=== PATIENT | female | born 1990 | race Caucasian/White ===

== ENCOUNTER 2019-08-08 14:27 | Inpatient (IN) | payer OTHER ==
[~2019-08-08] VITALS: Ht 160 cm; Wt 111.3 kg
[2019-08-08 14:42] VITALS: BP 107/59
[2019-08-08] MEDS ORDERED: PRENTAB9 PO (14:52)
[2019-08-08] MEDS ORDERED: TUMS750C5 PO (14:52)
[2019-08-08 15:31] LABS: HEMATOCRIT 35.3 % (36.0-47.0); MEAN CORPUSCULAR HEMOGLOBIN 30.2 pg (27.0-33.0); MEAN CORPUSCULAR VOLUME 88.9 fl (80.0-96.0); PLATELET COUNT, AUTOMATED 277 10^3/uL (150-450); RED BLOOD COUNT 3.97 10^6/uL (4.00-5.40); WHITE BLOOD COUNT 9.2 10^3/uL (4.0-10.0)
[2019-08-08] MEDS ORDERED: LACTATED RINGER'S 1000 ML IV STA (15:33)
[2019-08-08] MEDS ORDERED: miSOPROStol 25 MCG 1/4 TAB (S0191) As Ordered ONE (15:38)
[2019-08-08] MEDS ORDERED: miSOPROStol 25 MCG 1/4 TAB (S0191) PV ONE (15:45)
[2019-08-08 16:20] VITALS: BP 112/59
--- NOTE | 2019-08-08 16:33 | HPEPDOC ---
Obstetrical History & Physical General Date of Admission Aug 08, 2019 at 14:27 History of Present Illness Karen is a 28yo at 39+3wks, EDC [id number] by LMP of [id number]. She is being admitted for an elective IOL. She reports +FM and some intermittent contractions, denies LOF/VB. She is here today with her [id number] as her support person. Her is complicated by Obesity (BMI 39.5) and excessive weight gain ( TWG 34lbs) Blood Type is O Negative, GBS Negative, COVID Negative OB History: 12/2016 uncomplicated , pelvis tested to 9lbs 3oz Chief Complaint: Induction of labor Information Provided By: Patient Age: 28 : 2 Term: 1 Pre-term: 0 Abortions: 0 Livin Care Care: Good Care Dating Final EDC: August 12, 2019 Final EDC for Daily Update: August 12, 2019 Final EDC by: LMP Antepartum Course Height (inches): 63 Pre- weight (lbs.): 209 Admission Weight (lbs.): 243 Change in Weight (lbs.): 34 Past Medical History Past Obstetrical History : Past Obstetrical History: Multigravida Type of Delivery: Spontaneous Vaginal Del. 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: Human papillomavirus(HPV) (anogenital warts), History of STD (2013 CT+) Past Medical History Surgical History: Denies/None Family History Significant Family History: No pertinent family hx Social History Marital Status: Family situation: Spouse/partner deployed Psychosocial History: No pertinent psych hx * Smoker: non-smoker Alcohol: Denies Drugs: denies Allergies Coded Allergies: No Known Allergies (Unverified , 08/08/19) Medications Scheduled No.137/Iron/Folic Acd ( Vitamin Tablet) 1 Each Tablet, 1 TAB PO DAILY Scheduled PRN Calcium Carbonate (Tums) 300 Mg Tab.chew, 1 TAB PO BIDP PRN for HEARTBURN Physical Examination Physical Examination GENERAL: Alert and oriented times three. ABDOMEN: Gravid and non-tender to touch. FETUS: Is vertex by sterile vaginal examination, confirmed by TAUS. HEART RATE: Regular rate. LUNGS: Observed nonlabored breathing. EXTREMITIES: No edema. Vital Signs/I&O O: VSS, normotensive, afebrile FHR 135, moderate variability, + accels, no decels noted CTX: occassional, pt feels mild cramping VE: 2/40/-3, posterior and medium CRB placed at 70/70, 25mcg PV Cytotec placed at 1549 Laboratory Data 24H LABS Laboratory Tests 2 08/08/19 14:41: Serology Scanned Report Hepatitis B Testing 08/08/19 15:22: Nucleated Red Blood Cells % (auto) 0.0 CBC/BMP Laboratory Tests 08/08/19 15:22 Pertinent Laboratoy Data Blood Type: O- RBC Antibody Screen: Negative HIV: Negative Hepatitis B: Negative Rapid Plasma Reagin: Nonreactive Rubella: Immune Varicella: Immune Chlamydia/Gonorrhea: Negative Group B Streptococcus: Negative Anatomy Ultrasound Ultrasound Date: May 24, 2019 (Growth US with limited anatomical survey; full anatomy US not available in chart) Placenta Location: Anterior Normal Anatomy: Yes Placenta Previa: No Assessment/Plan Assessment Karen is a 28yo at 39+3wks who is being admitted for an elective IOL. Blood Type O Negative, GBS Negative, COVID Negative, Category I FHT. Plan P: Admit to LND, consent for cervical ripening, CRB, pitocin, labor and delivery PIV start, admission labs collected 500mL LR bolus PO and IV hydration CRB and Cytotec to start IOL Continuous monitoring for 1 hour after cytotec administration, then intermittent with category I FHT Close maternal/ monitoring Anticipate Consult with OB as indicated ROMELIA VELEZ CNM Aug 08, 2019 16:33
[2019-08-08 18:00] VITALS: BP 106/57
[2019-08-08 19:25] VITALS: BP 110/68
[2019-08-08] MEDS ORDERED: miSOPROStol 50 MCG 1/2 TAB (S0191) PO SCH (20:00)
[2019-08-08 20:48] VITALS: BP 101/58
[2019-08-08 22:23] VITALS: BP 111/65
[2019-08-09] VITALS (47 sets, daily range): BP systolic 70–123; BP diastolic 33–80
--- NOTE | 2019-08-09 00:08 | IPNPDOC ---
Text Note Date of Service The patient was seen on 08/09/19. NOTE Intrapartum Note Karen is a 28yo at 39w3d undergoing elective IOL. She had barreto cervical bulb and vaginal cytotec placed just before 1600 today and she began uncomfort ably hali. Barreto bulb recently fell out and ctx are less uncomfortable now. only complicated by obesity and excessive weight gain. Proven to 9lb. Vitals wnl, afebrile Cat I FHRT with bl 120's, +accels, -decels, mod niru [place]: ctx irregular SCE: 4-5/50/-2 Will begin IV pitocin and titrate per protocol 2mg IV stadol and 12.5mg IV phenergan for pain Candidate for epidural in active labor Will continue to closely monitor Safe to proceed Dr. Yulissa Downey MD VS,Leon, I+O VS, Leon, I+O Laboratory Tests 08/08/19 15:22 Vital Signs Date Time Temp Pulse Resp B/P (MAP) Pulse Ox O2 Delivery O2 Flow Rate FiO2 08/08/19 18:38 97.6 08/08/19 18:00 112 18 106/57 (73) I&O- Last 24 Hours up to 6 AM 08/09/19 06:00 Intake Total 980 ml Balance 980 ml Yulissa Downey MD Aug 09, 2019 00:08
[2019-08-09] MEDS ORDERED: BUTORPHANOL 2 MG/ML INJ (J0595) IV PRN (00:15)
[2019-08-09] MEDS ORDERED: PROMETHAZINE INJ 25 MG/ML VIAL (J2550) IV ONE (00:15)
[2019-08-09] MEDS ORDERED: OXYTOCIN DRIP 30 UNITS in IV 1 EA IV SCH ×2 (00:15→11:30)
[2019-08-09] MEDS ORDERED: FENTANYL 2MCG/ML ROPIVACAINE 0.2% IN 0.9% NACL 100ML IVBAG As Ordered ONE (07:09)
[2019-08-09] MEDS ORDERED: REFRIGERATOR IV KEYS XX PRN (08:00)
[2019-08-09] MEDS ORDERED: EPIDURAL COMMENT XX SCH (08:00)
[2019-08-09] MEDS ORDERED: EPIDURAL/PCA KEYS XX PRN (08:00)
[2019-08-09] MEDS ORDERED: ONDANSETRON 4MG/2ML VIAL IV PRN (08:00)
[2019-08-09] MEDS ORDERED: ePHEDrine SULFATE 25 MG/5 ML(5MG/ML) SYRINGE IV PRN (08:00)
[2019-08-09] MEDS ORDERED: FENTANYL/ROPIVACAINE/NACL BAG 100 ML EPIDURAL SCH (08:00)
[2019-08-09] MEDS ORDERED: diphenhydrAMINE 50MG/ML VIAL (J1200) IV PRN (08:00)
[2019-08-09] MEDS ORDERED: NALOXONE INJ 0.4MG/1ML VIAL (J2310 PER 1MG) IV PRN (08:00)
[2019-08-09] MEDS: LACTATED RINGER'S 1000 ML IV PRN ×2 (08:13→10:49)
--- NOTE | 2019-08-09 09:21 | IPNPDOC ---
Obstetrical Progress Note Date of Service Aug 09, 2019 Subjective Intrapartum Note S: Received report from Dr. Downey during board sign out of Karen, who is a 28yo at 39w4d undergoing elective IOL. She had barreto cervical bulb and vaginal cytotec (1 dose), then pitocin started shortly after midnight. She just received her epidural and is very comfortable and no longer feeling any pain. only complicated by obesity and excessive weight gain. Proven to 9lb. O: FSS, BP normotensive now (she did become hypotensive after epidural, but received 5mg ephedrine x4); afebrile FHR: 135, moderate variability, + accels , no decelerations CTX by TOCO: q2-6 minutes Pitocin running at 8mu/min at time of this note VE: 7/90/-2, BBOW, fetus ballotable A: 28yo at 36+4wks, Elective IOL, now active labor, Category I FHT P: CEFM x2 Continue to titrate pitocin per low dose protocol Plan to AROM during next exam Close maternal/ monitoring Anticipate Consult with OB as indicated Safe to proceed Objective Vital Signs Date Time Temp Pulse Resp B/P (MAP) Pulse Ox O2 Delivery O2 Flow Rate FiO2 08/09/19 07:55 18 98 08/09/19 06:44 81 111/56 (74) 08/09/19 06:05 97.3 Sterile Vaginal Examination Postion/Presentation: Cephalic presentation Assessment and Plan Status: Reassuring Anticipate: Vaginal Delivery ROMELIA VELEZ CNM Aug 09, 2019 09:21
[2019-08-09] MEDS ORDERED: IBUPROFEN 600 MG TAB PO PRN (11:30)
[2019-08-09] MEDS ORDERED: IBUPROFEN 800 MG TAB PO PRN (11:30)
[2019-08-09] MEDS ORDERED: DIBUCAINE 1% OINTMENT 30GM TOP PRN (11:30)
[2019-08-09] MEDS ORDERED: RHOGAM 300 MCG (1500 IU) INJ (J2790) IM SCH (11:30)
[2019-08-09] MEDS ORDERED: ACETAMINOPHEN 500 MG TAB PO PRN (11:30)
[2019-08-09] MEDS ORDERED: miSOPROStol 200 MCG TAB (S0191) PR ONE (11:30)
--- NOTE | 2019-08-09 11:50 | DNPDOC ---
[facility] Delivery Note Delivery Note DATE OF DELIVERY: 09 August 2019 at 11:06am. PREDELIVERY DIAGNOSIS: 39+4 weeks gestation, Elective IOL POST DELIVERY DIAGNOSIS: Delivered. PROCEDURE: MACHINE FUR CLEANER: ALDO Velez ANESTHESIA: Epidural ESTIMATED BLOOD LOSS: 350 mL. FINDINGS: 7 pound 13 ounce male infant, Score 8/10. DELIVERY SUMMARY: Called to room after SROM of 28yo at 39+4wks now feeling constant pressure and desire to push. Pt noted to be C/C/+2. Pt was prepped for delivery and labor staff donned appropriate PPE. Pt effectively pushed to deliver viable male infant over an intact perineum. head delivered direct OA and restituted to ROT. Left anterior shoulder delivered with ease, followed by right anterior shoulder, then remainder of body delivered to maternal abdomen where he was dried and stimulated; strong/lusty cry. Once cord stopped pulsating, clamped x2 and cut by patient's [id number]. Placenta delivered spontaneously and appeared intact, 3VC; pitocin bolus started. There was a rapid gush of fluid bleeding noted after placental delivery; fundus massaged to firm; 1000mcg cytotec placed rectally for bleeding prophylaxis. Upon inspection of vagina, perineum, and cervix, a danita-clitoral abrasion noted; not bleeding and no repair required. Mother and infant bonding well; anticipate uncomplicated PP course. ROEMLIA VELEZ CNM Aug 09, 2019 11:50
--- NOTE | 2019-08-09 12:00 | IPNPDOC ---
Obstetrical Progress Note Date of Service Aug 09, 2019 Subjective Intrapartum Note S: Pitocin restarted at 0948 and pt feeling intermittent pain with contractions. In room for bedside US BENEDICT. O: VSS, BP normotensive, afebrile FHR: 135, moderate variability, + accels , late decelerations and spontaneous decelerations noted startingat 1024, RN in room performing interventions; CTX by TOCO: irregular Pitocin running at 4mu/min; turned off at 1129 VE: deferred BENEDICT: SDP 3.06 in LLQ A: 23yo at 36+2wks, IOL for ICHP, Category II FHT. Dr. Watson called to review tracing and receive orders. 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
[2019-08-09] MEDS: DOCUSATE SODIUM 100 MG CAP PO PRN (19:47)
[2019-08-09] MEDS: ACETAMINOPHEN TAB 650MG DOSE (2X325MG) PO PRN (19:48)
--- NOTE | 2019-08-10 01:57 | IPN ---
DATE: 08/09/2019 This patient requested circumcision of her male . After discussing risks and benefits of circumcision, the medical to nonmedical indications, the penile block, and aftercare, expressed understanding of penile block, aftercare, and bleeding. Signed the consent form. All questions were answered, 20-minute discussion. We await the clearance by the end maker.
[2019-08-10 05:51] VITALS: BP 123/74
[2019-08-10] MEDS ORDERED: PRENATAL VITAMINS CHEWABLE TABLET PO SCH (09:00)
[2019-08-10] MEDS: ACETAMINOPHEN TAB 650MG DOSE (2X325MG) PO PRN (15:03)
--- NOTE | 2019-08-10 16:21 | IPN ---
DATE: 08/10/2019 A 28-year-old 2, now para 2, admitted for induction of labor at 39 and 4 weeks of gestation. Has an epidural in place. Vaginal delivery. Male 7 pounds 13 ounces. scores of 8 and 10 at one and five minutes, respectfully. Risk factor of body mass index (BMI) is 39.5. We discussed phlebitis, cystitis, mastitis, metritis, cellulitis, diet, exercise, pain management, and perineal, breast, and wound care. The patient is presently breast-feeding. It is not going that well; however, we are going to work on that. Plans are to discharge after infant has been seen by pediatrics and neonatology and circumcision is performed. The patient's medications were dispensed at [facility], and she will have a 6-week checkup at [facility]. On discharge, blood pressure 123/74, respirations 18, pulse 83, temperature 97.7. Her admitting hemoglobin 12.0, hematocrit 35.3, and platelets 277. In summary, we have a term gestation, delivered a live- male . Presently doing well.
[2019-08-10 18:01] VITALS: BP 124/69
[2019-08-11 06:00] VITALS: BP 120/65
--- NOTE | 2019-08-11 07:46 | IPNPDOC ---
Progress Note Date of Service: Aug 11, 2019 Day#: 2 Progress Note PPD 2 SUBJECT: Karen is a 28yo [id number] s/p uncomplicated on 08/08 after undergoing elective IOL at 39+wk, doing well day # 2. She has been ambulating, voiding spontaneously without issue and tolerating regular diet. Breast feeding without issue. Reports lochia is like a normal period. No lightheadedness/dizziness/CP/SOB/f/c/n/v. OBJECTIVE: VITAL SIGNS: Within normal limits, afebrile. Alert and oriented times three. Abdomen: Fundus firm at U-2. Soft, NTTP. Extremities: no pain with palpation of calves ASSESSMENT: Karen is a 28yo [id number] s/p uncomplicated on 08/09 after undergoing elective IOL at 39+wk, doing well day # 2. Vitals within normal limits, afebrile, hemodynamically stable with no evidence of infection. PLAN: 1. Discharge to home today. 2. Tylenol and Motrin for pain. 3. Encourage breast feeding and ambulation. 4. 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 Routine PP visit in 6 weeks in clinic. 6. Discussed return precautions at length. Dr. Yulissa Downey MD VS, I&O, 24H, Fishbone Vital Signs/I&O Vital Signs Date Time Temp Pulse Resp B/P (MAP) Pulse Ox O2 Delivery O2 Flow Rate FiO2 08/11/19 06:00 96.6 82 20 120/65 (83) 99 Room Air Yulissa Downey MD Aug 11, 2019 07:46
[2019-08-11] MEDS ORDERED: ACET-683 PO (07:47)
--- NOTE | 2019-08-11 07:50 | DS.PDOC ---
Discharge Summary General Date of Admission Aug 08, 2019 at 14:27 Date of Discharge Aug 11, 2019 Discharge Summary PROCEDURES PERFORMED DURING STAY: spontaneous vaginal delivery ADMITTING DIAGNOSES: 1. elective IOL at term DISCHARGE DIAGNOSES: 1. elective IOL at term, delivered COMPLICATIONS/CHIEF COMPLAINT: Induction. HISTORY OF PRESENT ILLNESS/HOSPITAL COURSE: Karen is a 28yo [id number] s/p uncomplicated on 08/09 after undergoing elective IOL at 39+wk, doing well day # 2. She has had a benign course. At time of discharge, vitals within normal limits, afebrile, hemodynamically stable with no evidence of infection. DISCHARGE MEDICATIONS: Please see below. ALLERGIES: Please see below. PHYSICAL EXAMINATION ON DISCHARGE: VITAL SIGNS: Within normal limits, afebrile. Alert and oriented times three. Abdomen: Fundus firm at U-2. Soft, NTTP. Extremities: no pain with palpation of calves LABORATORY DATA: Please see below. ACTIVITY: vaginal rest, no heavy lifting 6 weeks DIET: regular DISCHARGE PLAN/INSTRUCTIONS: 1. Discharge to home today. 2. Tylenol and Motrin for pain. 3. Encourage breast feeding and ambulation. 4. 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 Routine PP visit in 6 weeks in clinic. 6. Discussed return precautions at length. DISCHARGE CONDITION: Stable TIME SPENT ON DISCHARGE: Greater than [address] Yulissa Downey MD Vital Signs/I&Os Vital Signs Date Time Temp Pulse Resp B/P (MAP) Pulse Ox O2 Delivery O2 Flow Rate FiO2 08/11/19 06:00 96.6 82 20 120/65 (83) 99 Room Air Discharge Medications Scheduled No.137/Iron/Folic Acd ( Vitamin Tablet) 1 Each Tablet, 1 TAB PO DAILY, (Reported) Scheduled PRN Acetaminophen (Acetaminophen) 500 Mg Tablet, 1,000 MG PO Q6HP PRN for PAIN LEVEL 6-10 Calcium Carbonate (Tums) 300 Mg Tab.chew, 1 TAB PO BIDP PRN for HEARTBURN, (Reported) Allergies Coded Allergies: No Known Allergies (Unverified , 08/08/19) Yulissa Downey MD Aug 11, 2019 07:50
[2019-08-11 08:00] VITALS: BP 120/65
[2019-08-11] MEDS: DOCUSATE SODIUM 100 MG CAP PO PRN (10:17)
[2019-08-11 18:16] VITALS: BP 121/65
== END 2019-08-11 18:55 | disposition home or self-care (01) | DRG 807 ==
LOC: M LDI 14:27 → M OBS 08-09 13:25
PROVIDERS: ADMIT Registered Nurse Maternal Newborn; ATTEND Registered Nurse Maternal Newborn
PROC: 3E0P7VZ Introduction of Hormone into Female Reproductive, Via Natural or Artificial Opening (ICD-10-PCS; 2019-08-08)
PROC: 10E0XZZ Delivery of Products of Conception, External Approach (ICD-10-PCS; principal; 2019-08-09)
DX: O99.214 Obesity complicating childbirth (principal); Z37.0 Single live birth; Z3A.39 39 weeks gestation of pregnancy; E66.9 Obesity, unspecified

== ENCOUNTER 2020-07-03 14:17 | Emergency (ER) | payer OTHER ==
[~2020-07-03] VITALS: Ht 160 cm; Wt 100.0 kg
[~2020-07-03 14:17] MED LIST: ACET-683 PO; PRENTAB9 PO; TUMS750C5 PO
--- NOTE | 2020-07-03 15:00 | REP ---
INDICATION: trauma COMPARISON: None. TECHNIQUE: Four views right 3rd digit. FINDINGS: There is a vertical oblique nondisplaced fracture of the distal phalanx. No other acute fracture or dislocation is seen. IMPRESSION: Nondisplaced fracture 3rd distal phalanx. <Electronically signed by Miguel Jaimes > 07/03/20 [id number]
[2020-07-03 15:28] VITALS: BP 115/64
[2020-07-03] MEDS ORDERED: ceFAZolin SOD 2 GM in IV 1 EA IV ONE (15:30)
[2020-07-03] MEDS ORDERED: BOOSTRIX/ADACEL VACCINE (DIPHTH/PERTUSS/ACELL/TETANUS) 0.5ML SYR IM ONE (15:30)
[2020-07-03] MEDS ORDERED: CEPH500C PO (16:22)
[2020-07-03] MEDS ORDERED: DERMABOND TOPICAL SKIN ADHESIVE TOP ONE (16:45)
== END 2020-07-03 17:11 | disposition home or self-care (01) ==
LOC: M ED 14:17
DX: S62.632B Displaced fracture of distal phalanx of right middle finger, initial encounter for open fracture (principal); W23.0XXA Caught, crushed, jammed, or pinched between moving objects, initial encounter; Y92.018 Other place in single-family (private) house as the place of occurrence of the external cause; Z97.5 Presence of (intrauterine) contraceptive device
CPT/HCPCS: 12001; 73140; 90471; 90715; 96365; 99284; J0690

== ENCOUNTER 2021-01-28 19:25 | Emergency (ER) | payer OTHER ==
[~2021-01-28] VITALS: Ht 160 cm; Wt 97.7 kg
[~2021-01-28 19:25] MED LIST changes: +CEPH500C PO
[2021-01-28 19:27] VITALS: BP 116/66
--- OUTSIDE RECORDS SUMMARY | 2021-01-28 19:40 | CCD ---
Author Author [facility] Organization [facility] Address Unknown Phone Unavailable Care Team Providers Care Chief Of Pediatric Urology Name Role Phone Jared Gonzalez MD Unavailable Unavailable [place], Jared Little MD Unavailable Unavailable Carlos, Jared Little MD Unavailable Unavailable [place], Jared Little MD Unavailable Unavailable Carlos, Jared Little MD Unavailable Unavailable [place], Jared Little MD Unavailable Unavailable CarlosJared MD Unavailable Unavailable CarlosJared MD Unavailable Unavailable CarlosJared MD Unavailable Unavailable [place] MD Unavailable Unavailable [place] MD Unavailable Unavailable Re-disclosure Warning The records that you are about to access may contain information from federally-assisted alcohol or drug abuse programs. If such information is present, then the following federally mandated warning applies: This information has been disclosed to you from records protected by federal confidentiality rules (42 CFR part 2). The federal rules prohibit you from making any further disclosure of this information unless further disclosure is expressly permitted by the written consent of the person to whom it pertains or as otherwise permitted by 42 CFR part 2. A general authorization for the release of medical or other information is NOT sufficient for this purpose. The Federal rules restrict any use of the information to criminally investigate or prosecute any alcohol or drug abuse patient.The records that you are about to access may contain highly sensitive health information, the redisclosure of which is protected by Article 27-F of the [facility] Public Health law. If you continue you may have access to information: Regarding HIV / AIDS; Provided by facilities licensed or operated by the [facility] Office of Mental Health; or Provided by the [facility] Office for People With Developmental Disabilities. If such information is present, then the following [facility] mandated warning applies: This information has been disclosed to you from confidential records which are protected by state law. State law prohibits you from making any further disclosure of this information without the specific written consent of the person to whom it pertains, or as otherwise permitted by law. Any unauthorized further disclosure in violation of state law may result in a fine or senior care sentence or both. A general authorization for the release of medical or other information is NOT sufficient authorization for further disc losure. Encounters Encounter Providers Location Date Indications Data Source(s ) OFFICE OUTPATIENT VISIT 15 MINUTES Attender: Sidney Gonzalez MD P hysical Therapy 07/12/2020 10:45:00 AM EDT [facility] ([facility]) OFFICE OUTPATIENT NEW 30 MINUTES Attender: Sidney Gonzalez MD Phy sical Therapy 07/05/2020 02:45:00 PM EDT [facility] ([facility]) Immunizations Vaccine Date Status Description Data Source(s) COVID-19 VACCINE Moderna 08/14/2020 12:00:00 AM EDT completed SDSIIS Vaccine Series Complete: YESThis Data wa s Submitted to [facility] Via [employer]. COVID-19 VACCINE Moderna 07/17/2020 12:00:00 AM EDT completed SDSIIS Vaccine Series Complete: NOThis Data was Submitted to [facility] Via [facility]. Medications Medication Brand Name Start Date Product Form Dose Route Admi nistrative Instructions Pharmacy Instructions Status Indications Reaction Description Data Source(s) Acetaminophen 300 MG / Codeine Phosphate 30 MG Oral Tablet [Tylenol with Codeine] Tylenol With Codeine #3 07/05/2020 12:00:00 AM EDT active [facility] ([facility]) Insurance Providers Payer name Policy type / Coverage type Policy ID Covered libertarian ID Covered libertarian's relationship to fuentes Policy Fuentes Plan Information MEDICAID [id number] SP [id number] Medicaid S [id number] S [id number] [facility] [id number] [facility]MANA [facility] [id number] 2 [id number] [facility] [id number] P [id number] Self Pay P na S na Self Pay P UNAVAILABLE S UNAVAILA BLE Problems, Conditions, and Diagnoses No Information Surgeries/Procedures Procedure Description Date Indications Data Source(s) RADEX FINGR MINIMUM 2 VIEWS 08/02/2020 12:00:00 AM EDT [facility] ([facility]) EVACUATION SUBUNGUAL HEMATOMA 07/05/2020 12:00:00 AM E DT [facility] ([facility]) Results No Information Social History No Information Vital Signs ID Date Data Source UNK Name Value Range Interpretation Code Description Data Source(s) Body temperature 97.7 [degF] 97.7 [degF] [facility] ([facility]) Body height 63 [in_i] 63 [in_i] [facility] ([facility]) 5'3" Body weight 220.25 [lb_av] 220.25 [lb_av] [facility] T ([facility] Body mass index (BMI) [Ratio] 39.0 kg/m2 39.0 k g/m2 [facility] ([facility] )
--- OUTSIDE RECORDS SUMMARY | 2021-01-28 21:35 | CCD ---
Author Author [facility] Organization [facility] Address Unknown Phone Unavailable Care Team Providers Care Chief Information Officer Name Role Phone Jared Gonzalez MD Unavailable Unavailable CarlosJared MD Unavailable Unavailable Carlos, Jared Little MD Unavailable Unavailable [place], Jared Little MD Unavailable Unavailable [place]Jared MD Unavailable Unavailable CarlosJared MD Unavailable Unavailable [place]Jared MD Unavailable Unavailable CarlosJared MD Unavailable Unavailable [place] millan MD Unavailable Unavailable CarlosJared MD Unavailable Unavailable [place] MD Unavailable Unavailable Re-disclosure Warning The records [...] is protected by Article 27-F of the [facility] Public Health law. If you continue you may have access to information: Regarding HIV / AIDS; Provided by facilities licensed or operated by the [facility] Office of Mental Health; or Provided by the [facility] Office for People With Developmental Disabilities. If such information is present, then the following [facility] mandated warning applies: This information has been [...] law may result in a fine or mcfp sentence or both. A general authorization for the release of medical or other information is NOT sufficient authorization for further disc losure. Encounters Encounter Providers Location Date Indications Data Source(s ) OFFICE OUTPATIENT VISIT 15 MINUTES Attender: Sidney Gonzalez MD P hysical Therapy 07/12/2020 10:45:00 AM EDT [facility] ([facility]) OFFICE OUTPATIENT NEW 30 MINUTES Attender: Sidney Gonzalez MD Phy sical Therapy 07/05/2020 02:45:00 PM EDT [facility] ([facility]) Immunizations Vaccine Date Status Description Data Source(s) COVID-19 VACCINE Moderna 08/14/2020 12:00:00 AM EDT completed WVSIIS Vaccine Series Complete: YESThis Data wa s Submitted to [facility] Via [employer]. COVID-19 VACCINE Moderna 07/17/2020 12:00:00 AM EDT completed WVSIIS Vaccine Series Complete: NOThis Data was Submitted to [facility] Via [employer]. Medications Medication Brand Name Start Date Product Form Dose Route Admi nistrative Instructions Pharmacy Instructions Status Indications Reaction Description Data Source(s) Acetaminophen 300 MG / Codeine Phosphate 30 MG Oral Tablet [Tylenol with Codeine] Tylenol With Codeine #3 07/05/2020 12:00:00 AM EDT active [facility] ([facility]) Insurance Providers Payer name Policy type / Coverage type Policy ID Covered republican ID Covered republican's relationship to fuentes Policy Fuentes Plan Information MEDICAID [id number] SP [id number] Medicaid S [id number] S [id number] [facility] [id number] 2 [id number] [facility] [id number] 2 [id number] [facility] [id number] P [id number] Self Pay P na S na Self Pay P UNAVAILABLE S UNAVAILA BLE Problems, Conditions, and Diagnoses No Information Surgeries/Procedures Procedure Description Date Indications Data Source(s) RADEX FINGR MINIMUM 2 VIEWS 08/02/2020 12:00:00 AM EDT [facility] ([facility]) EVACUATION SUBUNGUAL HEMATOMA 07/05/2020 12:00:00 AM E DT [facility] ([facility]) Results No Information Social History No Information Vital Signs ID Date Data Source UNK Name Value Range Interpretation Code Description Data Source(s) Body temperature 97.7 [degF] 97.7 [degF] [facility] ([facility]) Body height 63 [in_i] 63 [in_i] [facility] ([facility]) 5'3" Body weight 220.25 [lb_av] 220.25 [lb_av] [facility] T ([facility] ) Body mass index (BMI) [Ratio] 39.0 kg/m2 39.0 k g/m2 [facility] ([facility]
[2021-01-28 22:10] LABS: RSV AMPLIFICATION NEGATIVE (NEGATIVE)
[2021-01-28] MEDS ORDERED: AFRI0.058 (22:12)
[2021-01-28] MEDS ORDERED: BENZ200C70 PO (22:12)
== END 2021-01-28 22:27 | disposition home or self-care (01) ==
LOC: M ED 19:25
DX: J06.9 Acute upper respiratory infection, unspecified (principal); B34.8 Other viral infections of unspecified site